=== PATIENT | male | born 1940 | race Caucasian/White ===

== ENCOUNTER 2017-01-10 13:14 | Inpatient (IN) | payer MEDICARE ==
[~2017-01-10] VITALS: Ht 180.3 cm; Wt 106.5 kg
[~2017-01-10 13:14] MED LIST: ASPIRIN LOW DOS81 M2 PO; CALCIUM 500+D PO; CASODEX50 MG PO; CRESTOR20 MG PO; FUROSEMIDE40 MG PO; HYDROCODONE/ACE1 TA7 PO; KLOR-CON20 MEQ PO; LOPRESSOR12.5 MG PO; MAGNESIUM-OX400 MG PO; METFORMIN500 MG PO; MULTI VIT PO; PRILOSEC20 MG PO; TERAZOSIN1 MG PO; TRAMADOL HCL50 MG PO; ZESTRIL/PRINIV2.5 MG PO
[2017-01-10 14:05] LABS: HEMATOCRIT 31.3 % (39.0-50.0); HEMOGLOBIN 9.7 g/dl (14.0-18.0); MEAN CELL VOLUME 92.1 fL CALC (80.0-100.0); MEAN CORPUSCULAR HGB 28.5 pG CALC (26.0-32.0); PLATELET COUNT 307 thou/uL (130-400); RED CELL DISTRI WIDTH 14.9 % (11.5-15.5)
[2017-01-10 14:19] LABS: CALCIUM 9.6 mg/dL (8.4-10.2); CREATININE 1.6 mg/dL (0.7-1.3); POTASSIUM 4.5 mmol/l (3.5-5.1)
[2017-01-10 14:21] LABS: URINE BILIRUBIN - DIPSTICK NEGATIVE (NEGATIVE); URINE BLOOD DIPSTICK MODERATE (NEGATIVE); URINE GLUCOSE - DIPSTICK 100 mg/dL (NEGATIVE); URINE KETONE NEGATIVE (NEGATIVE); URINE LEUK ESTERASE NEGATIVE (NEGATIVE); URINE NITRITE - DIPSTICK NEGATIVE (Negative); URINE PROTEIN - DIPSTICK >=300 mg/dL (NEG-TRACE); URINE SPECIFIC GRAVITY 1.025; URINE UROBILINOGEN - DIPSTICK 0.2 E.U./dL (0.2)
[2017-01-10 14:31] LABS: PROTHROMBIN TIME 10.7 SECONDS (9.0-12.5)
[2017-01-10 14:31] LABS: URINE COLOR RED
[2017-01-10] MEDS ORDERED: PREDNISONE1 MG PO (14:31)
[2017-01-10 14:32] LABS: URINE CLARITY CLOUDY; URINE RBC TNTC RBC/hpf (0-5); URINE SQUAMOUS EPITHELIAL CELL FEW EPI/hpf (0-FEW)
[2017-01-10 14:40] LABS: BAND 8 % (0-8); MANUAL DIFFERENTIAL YES
[2017-01-10 20:13] VITALS: BP 119/69
[2017-01-10 22:00] VITALS: BP 116/54
[2017-01-11 04:56] VITALS: BP 123/74
[2017-01-11 05:53] LABS: HEMATOCRIT 27.5 % (39.0-50.0); HEMOGLOBIN 8.5 g/dl (14.0-18.0); MEAN CELL VOLUME 92.3 fL CALC (80.0-100.0); MEAN CORPUSCULAR HGB 28.5 pG CALC (26.0-32.0); MEAN CORPUSCULAR HGB CONC 30.9 g/L CALC (32.0-36.0); RED BLOOD COUNT 2.98 mill/uL (4.70-6.10)
[2017-01-11 06:14] LABS: CALCIUM 8.8 mg/dL (8.4-10.2); CREATININE 1.5 mg/dL (0.7-1.3); POTASSIUM 4.4 mmol/l (3.5-5.1)
[2017-01-11 07:20] VITALS: BP 127/73
[2017-01-11 11:35] VITALS: BP 135/70
[2017-01-11 16:11] VITALS: BP 126/65
[2017-01-11 19:00] VITALS: BP 129/68
[2017-01-11 22:00] VITALS: BP 124/68
[2017-01-12] VITALS (8 sets, daily range): BP systolic 109–141; BP diastolic 49–80
[2017-01-12 05:49] LABS: CALCIUM 8.6 mg/dL (8.4-10.2); CREATININE 1.6 mg/dL (0.7-1.3); POTASSIUM 4.3 mmol/l (3.5-5.1)
[2017-01-12 05:51] LABS: HEMATOCRIT 29.1 % (39.0-50.0); HEMOGLOBIN 8.9 g/dl (14.0-18.0); MEAN CELL VOLUME 93.6 fL CALC (80.0-100.0); MEAN CORPUSCULAR HGB 28.6 pG CALC (26.0-32.0); MEAN CORPUSCULAR HGB CONC 30.6 g/L CALC (32.0-36.0); RED BLOOD COUNT 3.11 mill/uL (4.70-6.10); RED CELL DISTRI WIDTH 15.3 % (11.5-15.5)
[2017-01-12] MEDS ORDERED: KEFLEX500 M1 PO (11:52)
== END 2017-01-12 15:45 | disposition home health service (06) | DRG 723 ==
LOC: ED 13:14 → ED-I 16:28 → ED 16:46 → MS2 16:47
PROVIDERS: Family Medicine; ADMIT Internal Medicine; ATTEND Internal Medicine
PROC: 0T9B70Z Drainage of Bladder with Drainage Device, Via Natural or Artificial Opening (ICD-10-PCS; principal; 2017-01-10)
PROC: 0TCB8ZZ Extirpation of Matter from Bladder, Via Natural or Artificial Opening Endoscopic (ICD-10-PCS; 2017-01-12)
DX: C61 Malignant neoplasm of prostate (principal); I82.502 Chronic embolism and thrombosis of unspecified deep veins of left lower extremity; C79.11 Secondary malignant neoplasm of bladder; C79.51 Secondary malignant neoplasm of bone; R31.0 Gross hematuria; E11.22 Type 2 diabetes mellitus with diabetic chronic kidney disease; L03.116 Cellulitis of left lower limb; N13.30 Unspecified hydronephrosis; I25.10 Atherosclerotic heart disease of native coronary artery without angina pectoris; G89.3 Neoplasm related pain (acute) (chronic); I12.9 Hypertensive chronic kidney disease with stage 1 through stage 4 chronic kidney disease, or unspecified chronic kidney disease; N18.9 Chronic kidney disease, unspecified; R59.0 Localized enlarged lymph nodes; N32.89 Other specified disorders of bladder; I25.2 Old myocardial infarction; Z87.891 Personal history of nicotine dependence; Z79.899 Other long term (current) drug therapy; Z95.1 Presence of aortocoronary bypass graft
CPT/HCPCS: Q9967

== ENCOUNTER 2017-01-15 09:24 | Inpatient (IN) | payer MEDICARE ==
[~2017-01-15] VITALS: Ht 180.3 cm; Wt 110.2 kg
[~2017-01-15 09:24] MED LIST changes: +KEFLEX500 M1 PO; +PREDNISONE1 MG PO
--- NOTE | 2017-01-15 09:35 | NUR ---
PT TO ROOM FOR TREATMENT IN STABLE OCNDIITON
[2017-01-15 10:09] LABS: URINE BILIRUBIN - DIPSTICK SMALL (NEGATIVE); URINE BLOOD DIPSTICK LARGE (NEGATIVE); URINE CLARITY BLOODY; URINE COLOR RED; URINE GLUCOSE - DIPSTICK NEGATIVE (NEGATIVE); URINE KETONE TRACE mg/dL (NEGATIVE); URINE LEUK ESTERASE MODERATE (NEGATIVE); URINE NITRITE - DIPSTICK POSITIVE (Negative); URINE PROTEIN - DIPSTICK >=300 mg/dL (NEG-TRACE); URINE RBC TNTC RBC/hpf (0-5)
[2017-01-15 10:10] LABS: URINE BACTERIA MODERATE hpf; URINE EPITHELIAL CELLS FEW EPI/hpf (0-FEW)
[2017-01-15 10:38] LABS: HEMATOCRIT 27.5 % (39.0-50.0); HEMOGLOBIN 8.6 g/dl (14.0-18.0); IMMATURE GRANULOCYTES 2.1 % (0.0-1.0); MEAN CORPUSCULAR HGB 28.8 pG CALC (26.0-32.0); MEAN CORPUSCULAR HGB CONC 31.3 g/L CALC (32.0-36.0); NEUT# 7.59 thou/uL (1.82-7.42); RED BLOOD COUNT 2.99 mill/uL (4.70-6.10)
[2017-01-15 10:55] LABS: ALBUMIN 3.6 g/dL (3.2-5.0); BILIRUBIN, TOTAL 0.4 mg/dL (0.0-1.4); CALCIUM 9.5 mg/dL (8.4-10.2); CREATININE 1.9 mg/dL (0.7-1.3); POTASSIUM 4.2 mmol/l (3.5-5.1); TOTAL PROTEIN 6.3 g/dL (6.3-8.2)
--- NOTE | 2017-01-15 10:55 | NUR ---
PT SEEN BY EDP, AWARE OF PENDING U/S.
[2017-01-15 10:58] LABS: PROTHROMBIN TIME 11.1 SECONDS (9.0-12.5)
--- NOTE | 2017-01-15 14:16 | NUR ---
MEAL TRAY PROVIDED. PT AWARE OF PENDING ADMISSION.
[2017-01-15] MEDS ORDERED: LISINOPRIL2.5 MG PO (14:41)
--- NOTE | 2017-01-15 16:00 | NUR ---
Admission Note Report Given to: SBAR PRINTED TO FLOOR Transported by: Wheelchair X Stretcher Transported with: X Nurse Transporter X Patent IV O2 [employer] Specialist
--- NOTE | 2017-01-15 16:11 | NUR ---
PT TAKEN TO ROOM 277 WITHOUT INCIDENT, REPORT WAS TO FRANSICO JAMES.
[2017-01-15 16:17] VITALS: BP 138/80
--- NOTE | 2017-01-15 16:19 | NUR ---
REPORT RECEIVED FROM JERRY IN ED, PT ARRIVED ON UNIT VIA STRETCHER AND TRANSFERRED TO BED, ALERT AND ORIENTED X 3, ORIENTED TO ROOM AND CALL HALL. REPORTS PAIN IN LOWER BACK @ 7/10 AND OCCASIONAL SHARP STABBING PAIN TO LEFT LEG. HEARING AIDS X [address] IN [address], GLASSES IN PLACE. WILL CONTINUE TO MONITOR, SPOUSE AT BEDSIDE.
--- NOTE | 2017-01-15 16:52 | NUR ---
LEFT A MESSAGE BY LION ASENCIO FOR .
--- NOTE | 2017-01-15 18:45 | NUR ---
CORDELL LEWIS HAS BEEN APPLIED TO PT'S (R) LEG.
[2017-01-15 18:51] VITALS: BP 122/70
--- NOTE | 2017-01-15 19:15 | NUR ---
PT SITTING UP IN BED WATCHING TV. RESP ARE EVEN AND UNLABORED. NO DISTRESS NOTED. LUNGS ARE CLEAR. HR REG. PULSES PALPABLE THROUGHOUT. RLE HAS SLIGHT EDEMA. LLE W/ DVT IS RED AND EDEMA NOTED PT STATES HE HAS HAD DVT FOR 3+ MONTHS AND HAS A FILTER IN PLACE BECAUSE HE WAS NOT ABLE TO TOLERATE ANTICOAGULANTS DUE TO TURP. BS ACTIVE. PT RPORTS BM EARLIER TODAY. SCROTUM IS SWOLLEN. #20 LAC WITH NS @100CC/HR INFUSING NO REDNESS OR EDEMA NOTED AT IV SITE. CHEN DRAINING SIXTO COLORED URINE. WILL CONTINUE TO MONOITOR.
--- NOTE | 2017-01-15 21:42 | NUR ---
PT SCROTUM IS PAINFUL AND SWOLLEN. PROVIDED A TOWEL UNDER SCROTUM TO ALLOW SCROTUM TO BE ELEVATED. PILLOW CASE PROVIDED BETWEEN LEGS AND SCROTUM FOR COMFORT WELL.
--- NOTE | 2017-01-16 00:15 | NUR ---
IRRIGATED CHEN DUE TO LEAKING. PT TOLERATED WELL. NOTED YORYD IV SITE WAS LEAKING. WILL START A NEW IV SITE WELL. CHEN CONTINUE TO DRAIN SIXTO COLRED URINE. INFLATED BALLON WITH 10CC OF NS TO PREVENT FURTHER LEAKING. WILL CONTINUE TO MONITOR.
--- NOTE | 2017-01-16 01:10 | NUR ---
#22 RIGHT WRIST STARTED BY JB RAINES LPN. #20 LAC DC CATH TIP INTACT.
[2017-01-16 04:22] VITALS: BP 137/83
--- NOTE | 2017-01-16 04:51 | NUR ---
PT RESTING IN BED WITH EYES CLOSED. RESP ARE EVEN AND UNLABORED. NO DISTRESS NOTED. #22 RW. NS @100CC/HR INFUSING. NO REDNESS OR EDEMA NOTED AT SITE. CHEN DRAINING SIXTO URINE. WILL CONTINUE TO MONITOR
[2017-01-16 06:53] LABS: HEMATOCRIT 26.7 % (39.0-50.0); HEMOGLOBIN 8.2 g/dl (14.0-18.0); MEAN CELL VOLUME 92.1 fL CALC (80.0-100.0); MEAN CORPUSCULAR HGB 28.3 pG CALC (26.0-32.0); MEAN CORPUSCULAR HGB CONC 30.7 g/L CALC (32.0-36.0); RED BLOOD COUNT 2.9 mill/uL (4.70-6.10); RED CELL DISTRI WIDTH 15.3 % (11.5-15.5)
[2017-01-16 07:03] LABS: CALCIUM 8.9 mg/dL (8.4-10.2); CREATININE 1.7 mg/dL (0.7-1.3); POTASSIUM 4.1 mmol/l (3.5-5.1)
--- NOTE | 2017-01-16 08:08 | NUR ---
PT.UPRIGHT IN RECLINER EATING BREAKFAST AT THIS TIME, V/S ASSESSED, PT.DENIES ANY OTHER NEEDS AT THIS TIME, CALL LIGHT W/IN REACH. PT.INSTRUCTED TO CALL IF ANY NEEDS ARISE
[2017-01-16 08:11] VITALS: BP 140/77
--- NOTE | 2017-01-16 08:14 | NUR ---
PT SITTING UP IN THE RECLINER EATING BREAKFAST, CALL LIGHT IN REACH.
[2017-01-16] MEDS ORDERED: CIPROFLOXACN500 MG PO (14:18)
--- NOTE | 2017-01-16 14:32 | NUR ---
PT.MEDICATED W/IV LASIX AND POC DISCUSSED. AT BS.
[2017-01-16 15:36] VITALS: BP 143/76
--- NOTE | 2017-01-16 19:00 | NUR ---
CHEN CATHETER REMOVED, PT.TOLERATED WELL. 30CC REMOVED FROM CHEN BALLOON. PT.WANTS TO STAY TO MAKE SURE HE CAN URINATE W/OUT CHEN CATHETER. PT.IS IN RESTROOM AT THIS TIME ATTEMPTING TO URINATE.
[2017-01-16 19:35] VITALS: BP 123/76
--- NOTE | 2017-01-16 19:52 | NUR ---
PATIENT SITTING ON THE SIDE OF THE BED AT THIS TIME WITH AT BEDSIDE. PATIENT VOIDED 100CC OF BLOODY URINE AT THIS TIME. PATIENT CONT TO HAVE SEVERE SCOTAL AND PENIAL EDEMA. ENCOURAGED PATIENT TO USE ROLLED TOWEL FOR ELEVATION. PATIENT WITH HEP LOCK TO RIGHT WRIST INTACT-APPEARS HEALTHY AT THIS TIME. PATIENT INSTRUCTED TO CALL NEXT TIME HE HAS A SPEC TO BE MEASURED. VERBALIZES UNDERSTANDING OF THE STATED. CALL LIGHT IN REACH. WILL CONT TO MONITOR.
--- NOTE | 2017-01-16 20:47 | NUR ---
PATIENT VOIDED 125CC PINK TINGED URINE WITH A COUPLE OF SMALL CLOTS NOTED. IV SITE TO RIGHT WRIST D/C. CATH INTACT. DISCHARGE INSTRUCTS WERE ALREADY GIVEN TO THE PATIENT. JULIA VERBALIZES UNDERSTANDING OF DISCHARGE INSTRUCTIONS AND WILL F[facility]. PATIENT DISCHARGED VIA WHEELCHAIR WITH .
--- NOTE | 2017-01-16 20:50 | NUR ---
Discharge instructions given. Patient verbalizes understanding of same. Discharged in fair condition via Wheelchair to Home with spouse. All belongings sent with pt.
== END 2017-01-16 20:50 | disposition home or self-care (01) | DRG 729 ==
LOC: ED 09:24 → ED-I 13:38 → ED 13:50 → MS2 13:51
PROVIDERS: Emergency Medicine; ADMIT Internal Medicine; ATTEND Internal Medicine
DX: N50.89 Other specified disorders of the male genital organs (principal); C79.9 Secondary malignant neoplasm of unspecified site; E11.22 Type 2 diabetes mellitus with diabetic chronic kidney disease; I82.502 Chronic embolism and thrombosis of unspecified deep veins of left lower extremity; N39.0 Urinary tract infection, site not specified; N43.3 Hydrocele, unspecified; C61 Malignant neoplasm of prostate; I25.10 Atherosclerotic heart disease of native coronary artery without angina pectoris; R31.0 Gross hematuria; K21.9 Gastro-esophageal reflux disease without esophagitis; E78.5 Hyperlipidemia, unspecified; I12.9 Hypertensive chronic kidney disease with stage 1 through stage 4 chronic kidney disease, or unspecified chronic kidney disease; N18.9 Chronic kidney disease, unspecified; Z95.1 Presence of aortocoronary bypass graft; Z79.899 Other long term (current) drug therapy; Z87.891 Personal history of nicotine dependence

== ENCOUNTER 2017-08-05 13:56 | Inpatient (IN) | payer OTHER, MEDICARE ==
[~2017-08-05] VITALS: Ht 180.3 cm; Wt 113.7 kg
[~2017-08-05 13:56] MED LIST changes: +CIPROFLOXACN500 MG PO; +LISINOPRIL2.5 MG PO
--- NOTE | 2017-08-05 14:19 | NUR ---
PATIENT TO ROOM VIA WHEELCHAIR AND PHYSICIAN AT BEDSIDE FOR EVAL
[2017-08-05 14:50] LABS: HEMATOCRIT 30.2 % (39.0-50.0); HEMOGLOBIN 9.3 g/dl (14.0-18.0); IMMATURE GRANULOCYTES 0.8 % (0.0-1.0); MEAN CELL VOLUME 89.9 fL CALC (80.0-100.0); MEAN CORPUSCULAR HGB 27.7 pG CALC (26.0-32.0); MEAN CORPUSCULAR HGB CONC 30.8 g/L CALC (32.0-36.0); NEUT# 6.02 thou/uL (1.82-7.42); RED BLOOD COUNT 3.36 mill/uL (4.70-6.10); RED CELL DISTRI WIDTH 18.2 % (11.5-15.5)
--- NOTE | 2017-08-05 15:02 | NUR ---
pt with hob elevated, skin pale, warm, and dry. shortness of breath noted at rest, worse with exertion. ls diminished, abd firm, distended, bs active. pitting edema noted to bilateral lower extremities. monitor shows sinus tach, 02 95% room air.
[2017-08-05 15:05] LABS: CREATININE 1.7 mg/dL (0.7-1.3); POTASSIUM 3.8 mmol/l (3.5-5.1)
--- NOTE | 2017-08-05 16:00 | NUR ---
PT RESTING WITH EYES CLOSED, AWAKENS EASILY. SPOUSE AT BEDSIDE.
[2017-08-05 16:59] LABS: INFLUENZA A NONE DETECTED (NONE DETECT); INFLUENZA B NONE DETECTED (NONE DETECT)
--- NOTE | 2017-08-05 17:00 | NUR ---
PT OOB TO BATHROOM VIA WC. PT HAD ONE LOOSE, BROWN BM. PT BACK TO BED. INCREASED SHORTNESS OF BREATH NOTED ON EXERTION. PT POSITIONED IN BED FOR COMFORT 02 AT 2L VIA NC CONTINUES TO BE ON PT.
--- NOTE | 2017-08-05 18:00 | NUR ---
FROM ER VIA STRETCHER ACCOMPANIED BY AND CHEO BATEMAN. AMBULATED TO BED WITH UNSTEADY GAIT. EXERTIONAL SHORTNESS OF BREATH NOTED ON O2 VIA NC, TELE MONITOR IN PLACE. REPORTS DIARRHEA SINCE LAST CHEMO TREATMENT, WHICH IS Q3 WEEKS, NEXT CHEMO TREATMENT DUE 08/18/17. BILAT LOWER EXTREMITIES EDEMATOUS AND FIRM. ORIENTED TO ROOM AND CALL SYSTEM. SAFETY PRECAUTIONS REINFORCED. BED IN LOWEST POSITION WITH WHEELS LOCKED. CALL LIGHT WITHIN REACH. ENCOURAGED PT AND TO CALL FOR ANY NEEDS.
--- NOTE | 2017-08-05 18:00 | NUR ---
REPORT FLORES REGALADO RN.
[2017-08-05] MEDS ORDERED: LASIX 40 MG TAB40 MG PO (18:20)
[2017-08-05] MEDS ORDERED: ELIGARD45 MG SC (18:21)
[2017-08-05] MEDS ORDERED: METOPROL TAR25 M1 PO (18:23)
[2017-08-05] MEDS ORDERED: KLOR-CON SPRIN10 MEQ PO (18:26)
[2017-08-05] MEDS ORDERED: RAYOS5 MG PO (18:28)
[2017-08-05] MEDS ORDERED: ROSUVASTATIN CA40 MG PO (18:29)
[2017-08-05] MEDS ORDERED: FISH OIL1200 M1 PO (18:30)
[2017-08-05] MEDS ORDERED: CALCIUM/VITAMIN D (18:30)
[2017-08-05] MEDS ORDERED: MULTIVITAMI9 PO (18:31)
[2017-08-05 18:54] VITALS: BP 118/59
--- NOTE | 2017-08-05 19:25 | NUR ---
REPORT RECEIVED FROM DAY NURSE, FRANSICO TANNER. PT.IS LAYING BACK DOWN FROM SITTING ON SIDE OF THE BED. IS ASSISTING HIM TO POSITION, WE ASSISTED WELL. POC DISCUSSED W/PT AND USE OF BSC WAS DISCUSSED W/PT DUE TO SOB. URINAL IS AT BEDSIDE W/IN PT.REACH. VANCO IS RUNNING AT THIS TIME. IV SITE APPEARS HEALTHY. PT.DENIES ANY OTHER NEEDS AT THIS TIME. PT.LEFT IN BED W/ AT BEDSIDE. BED LEFT IN HIGH FOWLERS POSITION FOR COMFORT OF BREATHING. PT.ENCOURAGED TO CALL IF ANY NEEDS ARISE, CALL LIGHT IS AT SIDE.
[2017-08-05 19:50] VITALS: BP 124/66
--- NOTE | 2017-08-05 20:18 | NUR ---
ED CALLED TO REPORT PT.HR IN 140'S SUSTAINED. PT.IS SITTING ON SIDE OF THE BED C/O SOB. O2 IS ON NC @2L, PHYSICIAN NOTIFIED, ORDERS ARE BEING PLACED.
--- NOTE | 2017-08-05 21:36 | NUR ---
PT.MEDICATED ORDERS PROVIDE, VANCO IS STILL RUNNING AT THIS TIME. WILL CONTINUE ADMINISTERING OTHER ANTIBIOTICS ORDERED WHEN COMPLETE. PT.IS IN RECLINER FOR COMFORT OF BREATHING. O2 IS ON NC @2L, FEET ARE ELEVATED. PT.PROVIDED FRESH WATER TO DRINK, DENIES ANY OTHER NEEDS AT THIS TIME. WILL CONTINUE TO MONITOR AND FOLLOW CLOSELY. CALL LIGHT LEFT ON BST AT PT.SIDE AND HE HAS BEEN REMINDED TO CALL IF ANY NEEDS ARISE. PT.IS LOCX4, SLIGHTLY HARD OF HEARING, BUT LOC.
--- NOTE | 2017-08-05 22:26 | NUR ---
PT.MEDICATED W/IV ANTIBIOTICS ORDERS PROVIDE. TEMP REASSESSED @98.3, PT.HAS REMOVED HIS GOWN AND REPORTS FEELING "HOT," NO S/O CHILLS, A/C IN ROOM IS LOWERED. BREATHING IS NO LONGER LABORED, PT.IS APPEARS TO BE RESTING COMFORTABLY IN RECLINER. REPORTS SLEEPING IN RECLINER AT HOME. NO SOB AT THIS TIME OR S/O DISTRESS. CALL LIGHT IS ON BST W/IN REACH.
[2017-08-06] VITALS (10 sets, daily range): BP systolic 82–106; BP diastolic 49–89
--- NOTE | 2017-08-06 00:15 | NUR ---
PT.IS IN RECLINER ASLEEP UPON ENTERING ROOM. IV FLUIDS ARE RUNNING @100, SITE APPEARS HEALTHY. V/S ASSESSED AND LAB IS IN TO SEE PT. NO S/S OF DISTRESS NOTED AT THIS TIME. CALL LIGHT W/IN REACH. PT.DENIES ANY OTHER NEEDS. PT.LEFT IN RECLINER TO SEE PER REQUEST.
--- NOTE | 2017-08-06 02:25 | NUR ---
ED CALLED TO REPORT PT TELE NOT READING. ALL LEADS LOOK IN PLACE. CHANGED LEAD PADS ALL NEW, ED REPORTS NOW ALL LEADS ARE READING, PT.HR@83. PT.REPORTS "FEEL MUCH BETTER THAN I DID EARLIER." BREATHING IS NOT LABORED, BREATH SOUNDS ARE CLEAR, DENIES SOB AT THIS TIME. PT.IS LEFT IN RECLINER W/FEET ELEVATED. OFFERED ASSISTANCE IN MOVING TO THE BED, BUT PT.DENIED WANTING TO STAY IN THE RECLINER. O2 NC ON @2L. CALL LIGHT ON BST
--- NOTE | 2017-08-06 03:45 | NUR ---
PT.UP TO BSC W/LOOSE STOOLS, 1 SMALL LOOSE DARK GREEN STOOL AND 150CC DARK YELLOW URINE IN URINAL. PT.CLEANED AND PROVIDED MALI-CARE AND REPOSITIONED BACK IN RECLINER. PT DID NOT WANT FEET ELEVATED AT THIS TIME. V/S ASSESSED, PT ASSISTED DRINKING PO FLUIDS. IV FLUIDS RUNNING NS@100 IN THE RAC, IV SITE APPEARS HEALTHY/SECURED. LW IV SITE APPEARS HEALTHY AND IS PATENT. LUNG SOUNDS ARE CLEAR/DIM, BREATHING IS NON-LABORED. PT.REPORTS NOT FEELING SOB HE DID WHEN HE CAME IN. O2 SAT 99%ON 2LNC. BP IS RUNNING LOW 97/55, HR IMPROVED @90. PT.SOCKS AND GOWN REPLACED AT THIS TIME AND POT MAKER PLACEMENT CHECKED. PT.DENIES ANY OTHER NEEDS OF ASSISTANCE AT THIS TIME. CALL LIGHT IS W/IN REACH ON BST.
--- NOTE | 2017-08-06 06:07 | NUR ---
PT.AMBULATED TO RESTROOM, MODERATE SIZE LOOSE DARK GREEN BM. PT.AMBULATED BACK TO RECLINER W/ASSISTANCE. ASSISTED PT.IN REPOSITIONING, HE WANTED HIS FEET DOWN FOR NOW, IV FLUIDS ARE RUNNING NS@100/SITE APPEARS HEALTHY. PT.HAD MILD SOB UPON AMBULATING. PO FLUIDS OFFERED AND PT.ENCOURAGED TO CALL IF ANY FURTHER NEEDS ARISE.
--- NOTE | 2017-08-06 07:00 | NUR ---
BEDSIDE REPORT RECEIVED BY BARNEY. PT IS RESTING IN BED WITH NO S/S OF DISTRESS NOTED. PT DENIES NEEDS AT THIS TIME. SAFETY PRECAUTIONS REINFORCED AND CALL LIGHT IN REACH.
--- NOTE | 2017-08-06 07:05 | NUR ---
PT IS SITTING IN RECLNER WITH NO S/S OF DISTRESS NOTED. PT DENIES NEEDS AT THIS TIME. CALL LIGHT IN REACH.
--- NOTE | 2017-08-06 08:00 | NUR ---
PT IS SITTING IN RECLINER. ASSESSMENT DONE AND TELE IN PLACE. LUNG SOUND CLEAR/DIMINISHED. O2 AT 2L/MIN VIA NC. NS INFUSING WELL. PT DENIES PAIN AT THIS TIME. SAFETY PRECAUTIONS REINFORCED AND CALL LIGHT IN REACH.
--- NOTE | 2017-08-06 08:40 | NUR ---
DR. FULLER IN ROOM TO ASSESS PT AT THIS TIME.
[2017-08-06 12:24] LABS: HEMATOCRIT 30.9 % (39.0-50.0); HEMOGLOBIN 9.4 g/dl (14.0-18.0); MEAN CELL VOLUME 91.2 fL CALC (80.0-100.0); MEAN CORPUSCULAR HGB 27.7 pG CALC (26.0-32.0); MEAN CORPUSCULAR HGB CONC 30.4 g/L CALC (32.0-36.0); RED BLOOD COUNT 3.39 mill/uL (4.70-6.10); RED CELL DISTRI WIDTH 18.3 % (11.5-15.5)
--- NOTE | 2017-08-06 12:24 | NUR ---
MEDICATED PT WITH TYLENOL FOR TEMP. 100.7. PT DENIES ANY OTHER NEEDS AT THIS TIME. CALL LIGHT IN REACH.
[2017-08-06 12:51] LABS: ANION GAP 19 (6-22 (CALC)); BUN 27 mg/dL (8-23); BUN/CREATININE RATIO 16 (12-20 (CALC)); CARBON DIOXIDE 22 mmol/l (22-30); CHLORIDE 96 mmol/l (95-108); CREATININE 1.7 mg/dL (0.7-1.3); GFR 39 ML/MIN (>=60 (CALC)); GFR FOR AFR.AMER. 48 ML/MIN (>=60 (CALC)); POTASSIUM 4.1 mmol/l (3.5-5.1); SODIUM 132 mmol/l (137-146)
--- NOTE | 2017-08-06 16:00 | NUR ---
PT IS SITTING IN RECLINER WITH NO S/S OF DISTRESS NOTED. PT DENIES NEEDS AT THIS TIME. IN ROOM. CALL LIGHT IN REACH.
--- NOTE | 2017-08-06 19:45 | NUR ---
PT OOB SITTING IN BEDSIDE CHAIR WITH AT BEDSIDE. RESP EVEN AND UNLABORED WITH O2 IN PLACE. TELE IN PLACE. LUNGS CLEAR/ DIMINISHED IN BASES. ABD SOFT, ACTIVE BOWEL SOUNDS. +3 EDEMA LEGS, PT ENCOURAGED TO ELEVATE. PT STATES " I AM MORE COMFORTABLE WITH MY LEGS DOWN". PEDAL PULSES PALPATED BILAT. IV RAC PATENT; NO REDNESS OR EDEMA NOTED. IV LW PATENT; FLUSHED WITHOUT DIFFICULTY. SAFETY PRECAUTIONS REINFORCED; FREQUENT ROUNDS MADE. CALL LIGHT WITHIN REACH.
--- NOTE | 2017-08-07 00:20 | NUR ---
PT SITTING IN BEDSIDE CHAIR. RESP EVEN AND UNLABORED WITH O2 IN PLACE. PT STATES " I AM MORE COMFORTABLE SLEEPING IN BEDSIDE CHAIR. I USUALLY SLEEP IN A CHAIR AT HOME." PT HAS LEGS ELEVATED. PT DENIES ANY PAIN OR DISCOMFORT. IV RAC PATENT; NO REDNESS OR EDEMA NOTED. TELE IN PLACE. CALL LIGHT WITHIN REACH.
--- NOTE | 2017-08-07 04:00 | NUR ---
PT OOB IN BEDSIDE CHAIR, PT DENIES ANY PAIN OR DISCOMFORT. RESP EVEN AND UNLABORED WITH O2 IN PLACE. TELE IN PLACE. IV PATENT; NO REDNESS OR EDEMA NOTED. LEGS ELEVATED. CALL LIGHT WITHIN REACH.
[2017-08-07 05:30] VITALS: BP 105/62
--- NOTE | 2017-08-07 07:00 | NUR ---
BEDSIDE REPORT RECEIVED BY LILLIAN. PT IS SITTING IN RECLINER SLEEPING WITH NO S/S OF DITRESS NOTED. CALL LIGHT IN REACH.
[2017-08-07 07:46] VITALS: BP 113/63
--- NOTE | 2017-08-07 08:00 | NUR ---
ASSESSMENT DONE. LUNG SOUND CLEAR/DIMINISHED. O2 AT 2L/MIN VIA NC. PT DENIES PAIN AT THIS TIME. ELEVATED PT LEGS IN RECLINER. NS AT 10ML/HR INFUSING WELL. SAFETY PRECAUTIONS REINFORCED AND CALL LIGHT IN REACH.
--- NOTE | 2017-08-07 09:41 | NUR ---
CULTURE RESULTS CALLED TO ON 08/07/17 @7389 1 OF 2 SETS GRAM (+) COCCI. FINAL C+S RESULTS PENDONG
--- NOTE | 2017-08-07 09:50 | NUR ---
DR. FULLER IN ROOM TO ASSESS PT AT THIS TIME.
--- NOTE | 2017-08-07 12:06 | NUR ---
PT IS STTING IN RECLINER WITH NO S/S OF DISTRESS NOTED. PT DENIES NEEDS AT THIS TIME. IN ROOM. CALL LIGHT IN REACH.
[2017-08-07 12:35] VITALS: BP 115/69
--- NOTE | 2017-08-07 16:00 | NUR ---
PT IS RESTING IN RECLINER WITH NO S/S OF DISTRESS NOTED. PT DENIES NEEDS AT THIS TIME. IN ROOM. CALL LIGHT IN REACH.
[2017-08-07 16:21] VITALS: BP 104/56
--- NOTE | 2017-08-07 18:08 | NUR ---
NOTIFED DR. FULLER RE: PT WHEEZES AND SOB. ORDERS RECEIVED.
--- NOTE | 2017-08-07 19:31 | NUR ---
PT SITTING IN BEDSIDE CHAIR WITH LEGS ELEVATED. AT BEDSIDE. LUNGS; WHEEZES/DIMINISHED BILAT. RESP EVEN AND UNLABORED WITH O2 IN PLACE. TELE IN PALCE. ABD SOFT; ACTIVE BOWEL SOUNDS NOTED. +3 EDEMA LEGS BILAT; PEDAL PULSES PALPATED BILAT. IV LW PATENT; FLUSHED WITHOUT DIFFICULTY. IV RAC PATENT; NO REDNESS OR EDEMA NOTED. PT DENIES ANY PAIN. SAFETY PRECAUTIONS REINFORCED. FREQUENT ROUNDS MADE. CALL LIGHT WITHIN REACH.
[2017-08-07 20:25] VITALS: BP 102/64
[2017-08-08] VITALS (7 sets, daily range): BP systolic 100–132; BP diastolic 54–74
--- NOTE | 2017-08-08 00:15 | NUR ---
PT SITTING IN BEDSIDE CHAIR, LEGS ELEVATED. PT DENIES PAIN OR DISCOMFORT. IV PATENT; NO REDNESS OR EDEMA NOTED. TELE IN PLACE. OFFERED TO HELP PT TO BED, PT STATES "I AM MORE COMFORTABLE SLEEPING IN CHAIR." CALL LIGHT WITHIN REACH.
--- NOTE | 2017-08-08 04:30 | NUR ---
ASSESSMENT UNCHANGED; RESP EVEN AND UNLABORED WITH O2 IN PLACE. IV PATENT; NO REDNESS OR EDEMA NOTED. TELE IN PLACE. CALL LIGHT WITHIN REACH.
[2017-08-08 05:14] LABS: CREATININE 1.7 mg/dL (0.7-1.3); POTASSIUM 3.4 mmol/l (3.5-5.1)
[2017-08-08 05:28] LABS: HEMOGLOBIN 9.2 g/dl (14.0-18.0); MEAN CELL VOLUME 91.5 fL CALC (80.0-100.0); MEAN CORPUSCULAR HGB CONC 30.7 g/L CALC (32.0-36.0); RED BLOOD COUNT 3.28 mill/uL (4.70-6.10); RED CELL DISTRI WIDTH 18.2 % (11.5-15.5)
--- NOTE | 2017-08-08 07:00 | NUR ---
BEDSIDE REPORT RECEIVED BY LILLIAN. PT IS SITTING IN RECLINER SLEEPING WITH NO S/S OF DISTRESS NOTED. CALL LIGHT IN REACH .
--- NOTE | 2017-08-08 08:00 | NUR ---
ASSESSMENT DONE. LUNG SOUND WHEEZE/DIMINISHED. O2 AT 2L/MIN VIA NC. NS AT 10ML/HR INFUSING WELL. TELE IN PLACE. PT DENIES PAIN AT THIS TIME. SAFETY PRECAUTIONS REINFORCED AND CALL LIGHT IN REACH.
--- NOTE | 2017-08-08 10:08 | NUR ---
DR. FULLER IN ROOM TO ASSESS PT AND POC DISCUSSED WITH PT.
--- NOTE | 2017-08-08 12:00 | NUR ---
PT IS SITTING IN RECLINER EATING HIS LUNCH WITH NO S/S OF DISTRESS NOTED. PT DENIES NEEDS AT THIS TIME. CALL LIGHT IN REACH AND IN ROOM.
[2017-08-08 12:10] LABS: C. DIFFICILE TOXIN A&B NEGATIVE (NEGATIVE)
--- NOTE | 2017-08-08 16:00 | NUR ---
PT IS SITTING IN RECLINER WITH LEGS ELEVATED. NO S/S OF DISTRESS NOTED. PT DENIES NEEDS AT THIS TIME. IN ROOM AND CALL LIGHT IN REACH.
--- NOTE | 2017-08-08 19:33 | NUR ---
PT SITTING IN BEDSIDE CHAIR WITH AT SIDE. PT DENIES ANY PAIN OR DISCOMFORT. RESP EVEN AND UNLABORED WITH O2 IN PLACE. LUNGS CLEAR/DIMINISHED BILAT. TELE IN PLACE. LEGS ELEVATED, +2 EDEMA BILAT. PEDAL PULSES PALPATED BILAT. IV RAC PATENT; NO REDNESS OR EDEMA NOTED. IV LW PATENT; FLUSHED WITHOUT DIFFICULTY. SAFETY PRECAUTIONS REINFORCED; FREQUENT ROUNDS MADE. CALL LIGHT WITHIN REACH.
--- NOTE | 2017-08-09 00:20 | NUR ---
PT DENIES PAIN OR DISCOMFORT. RESP EVEN AND UNLABORED WITH O2 IN PLACE. IV PATENT; NO REDNESS OR EDEMA NOTED. TELE IN PLACE. CALL LIGHT WITHIN REACH.
--- NOTE | 2017-08-09 04:10 | NUR ---
ASSESSMENT UNCHANGED; PT SLEEPING IN BEDSIDE CHAIR WITH LEGS ELEVATED. RESP EVEN AND UNLABORED WITH O2 IN PLACE. TELE IN PLACE. IV PATENT; NO REDNESS OR EDEMA NOTED. CALL LIGHT WITHIN REACH.
[2017-08-09 04:15] VITALS: BP 117/69
[2017-08-09 05:13] LABS: HEMATOCRIT 28.3 % (39.0-50.0); MEAN CELL VOLUME 89.6 fL CALC (80.0-100.0); MEAN CORPUSCULAR HGB 28.5 pG CALC (26.0-32.0); MEAN CORPUSCULAR HGB CONC 31.8 g/L CALC (32.0-36.0); RED BLOOD COUNT 3.16 mill/uL (4.70-6.10); RED CELL DISTRI WIDTH 17.9 % (11.5-15.5)
[2017-08-09 05:27] LABS: CREATININE 1.7 mg/dL (0.7-1.3); POTASSIUM 3.9 mmol/l (3.5-5.1)
--- NOTE | 2017-08-09 07:00 | NUR ---
RECEIVED BEDSIDE REPORT FROM FLOR VALERA. SITTING IN BEDSIDE CHAIR WATCHING TV. RESPS EVEN AND UNLABORED ON O2 VIA NC, TELE MONITOR IN PLACE. #20 RAC INFUSING WITHOUT DIFFICULTY, SITE APPEARS HEALTHY. DENIES PAIN OR DISCOMFORT. PLAN OF CARE DISCUSSED. SAFETY PRECAUTIONS REINFORCED. BED IN LOWEST POSITION WITH WHEELS LOCKED. CALL LIGHT WITHIN REACH. ENCOURAGED PT TO CALL FOR ANY NEEDS.
[2017-08-09 08:55] VITALS: BP 113/55
[2017-08-09 11:31] VITALS: BP 108/63
--- NOTE | 2017-08-09 11:45 | NUR ---
SITTING IN BEDSIDE CHAIR, AT BEDSIDE. RESPS EVEN AND UNLABORED ON O2 VIA NC, TELE MONITOR IN PLACE. #20 RAC INFUSING WITHOUT DIFFICULTY, SITE APPEARS HEALTHY. DR FULLER AT BEDSIDE, NEW ORDERS RECEIVED.
[2017-08-09 15:17] VITALS: BP 112/66
--- NOTE | 2017-08-09 16:00 | NUR ---
SITTING IN BEDSIDE CHAIR. RESPS EVEN AND UNLABORED ON O2 VIA NC, TELE MONITOR IN PLACE. #20 RAC INFUSING WITHOUT DIFFICULTY, SITE APPEARS HEALTHY. VOICES NO NEEDS AT THIS TIME. CALL LIGHT WITHIN REACH. WILL CONTINUE TO MONITOR.
[2017-08-09 19:00] VITALS: BP 125/64
--- NOTE | 2017-08-09 20:40 | NUR ---
PT SITTING IN BEDSIDE CHAIR, AT BEDSIDE. PT DENIES ANY PAIN OR DISCOMFORT. RESP EVEN AND UNLABORED WITH O2 IN PLACE. TELE IN PALCE. ABD SOFT; ACTIVE BOWEL SOUNDS NOTED. +2 EDEMA ANKLES BILAT. PT ENCOURAGED TO ELEVATE. IV RAC PATENT; FLUSHED WITHOUT DIFFICULTY. IV LW PATENT; FLUSHED WITHOUT DIFFICULTY. SAFETY PRECAUTIONS REINFORCED. FREQUENT ROUNDS MADE. CALL LIGHT WITHIN REACH.
[2017-08-10] VITALS: BP 118/58
--- NOTE | 2017-08-10 00:15 | NUR ---
PT APPEARS TO BE SLEEPING IN BEDSIDE CHAIR WITH LEGS ELEVATED. RESP EVEN AND UNLABORED WITH O2 IN PALCE. TELE IN PLACE. CALL LIGHT WITHIN REACH.
--- NOTE | 2017-08-10 04:10 | NUR ---
ASSESSMENT UNCHANGED; PT DENIES PAIN. RESP EVEN AND UNLABORED WITH O2. TELE IN PLACE. CALL LIGHT WITHIN REACH.
[2017-08-10 04:15] VITALS: BP 126/74
[2017-08-10 05:30] LABS: CREATININE 1.6 mg/dL (0.7-1.3); MAGNESIUM 1.9 mg/dL (1.6-2.3)
[2017-08-10 06:04] LABS: HEMATOCRIT 29.4 % (39.0-50.0); HEMOGLOBIN 8.9 g/dl (14.0-18.0); MANUAL DIFFERENTIAL YES; MEAN CELL VOLUME 90.2 fL CALC (80.0-100.0); MEAN CORPUSCULAR HGB 27.3 pG CALC (26.0-32.0); MEAN CORPUSCULAR HGB CONC 30.3 g/L CALC (32.0-36.0); PLATELET COUNT 299 thou/uL (130-400); RED BLOOD COUNT 3.26 mill/uL (4.70-6.10); RED CELL DISTRI WIDTH 17.8 % (11.5-15.5)
[2017-08-10 06:05] LABS: PLATELET ESTIMATE NORMAL
--- NOTE | 2017-08-10 07:00 | NUR ---
RECEIVED BEDSIDE REPORT FROM FLOR VALERA. SITTING IN BEDSIDE CHAIR. RESPS EVEN AND UNLABORED ON O2 VIA NC, TELE MONITOR IN PLACE. DENIES PAIN OR DISCOMFORT. PLAN OF CARE DISCUSSED. SAFETY PRECAUTIONS REINFORCED. BED IN LOWEST POSITION WITH WHEELS LOCKED. CALL LIGHT WITHIN REACH. WILL CONTINUE TO MONITOR.
[2017-08-10 08:10] VITALS: BP 118/65
[2017-08-10 11:05] VITALS: BP 104/64
--- NOTE | 2017-08-10 12:00 | NUR ---
TO ULTRASOUND IN STABLE CONDITION VIA WHEELCHAIR ACCOMPANIED BY DIANE BIRD.
--- NOTE | 2017-08-10 13:15 | NUR ---
FROM ULTRASOUND VIA WHEELCHAIR ACCOMPANIED BY VOLUNTEER. AMBULATED TO BEDSIDE CHAIR WITH MIN ASSIST. SOB NOTED WITH EXERTION, TELE MONITOR IN PLACE. CALL LIGHT WITHIN REACH. WILL CONTINUE TO MONITOR.
[2017-08-10 15:38] VITALS: BP 117/69
--- NOTE | 2017-08-10 16:00 | NUR ---
SITTING IN BEDSIDE CHAIR, AT BEDSIDE. RESPS EVEN AND UNLABORED ON O2 VIA NC, TELE MONITOR IN PLACE. DENIES PAIN OR DISCOMFORT. CALL LIGHT WITHIN REACH. WILL CONTINUE TO MONITOR.
--- NOTE | 2017-08-10 19:45 | NUR ---
PT SITTING UP IN RECLINER WATCHING TV. PT IS ALERT AND ORIENTED X3. PERRLA. RESP ARE EVEN AND UNLABORED. NO DISTRESS NOTED. LUNGS ARE CLEAR AND DIMINISHED THROUGHOUT. HR REGULAR. TELE IN PLACE. PULSES PALPABLE THROUGHOUT. 2+ EDEMA TO BLE. BS ACTIVE. PT VOIDING VIA URINAL. BM REPORTED TODAY. 320 RAC AND #22 LEFT WRIST. BOTH SALINE LOCKED. NO REDNESS OR EDMEA NOTED AT EITHER SITE. CALL LIGHT IN REACH. WILL CONTINUE TO MONTIOR
[2017-08-10 19:50] VITALS: BP 139/77
--- NOTE | 2017-08-10 23:58 | NUR ---
PT RESTING IN RECLINER WATCHING TV. RESP ARE EVEN AND UNLABORED. NO DISTRESS NOTED. CALL LIGHT IN REACH. WILL CONTINUE TO MONTIOR
[2017-08-11 00:30] VITALS: BP 119/65
--- NOTE | 2017-08-11 04:12 | NUR ---
PT UP IN RECLINER WITH EYES CLOSED. RESP ARE EVEN AND UNLABORED. NO DISTRESS NOTED. CALL LIGHT IN REACH. WILL CONTINUE TO MONTIOR
[2017-08-11 05:31] LABS: HEMATOCRIT 29.8 % (39.0-50.0); HEMOGLOBIN 9.2 g/dl (14.0-18.0); MEAN CELL VOLUME 90.9 fL CALC (80.0-100.0); MEAN CORPUSCULAR HGB CONC 30.9 g/L CALC (32.0-36.0); RED BLOOD COUNT 3.28 mill/uL (4.70-6.10); RED CELL DISTRI WIDTH 18.2 % (11.5-15.5)
[2017-08-11 05:39] LABS: CREATININE 1.6 mg/dL (0.7-1.3); MAGNESIUM 1.9 mg/dL (1.6-2.3); POTASSIUM 4.4 mmol/l (3.5-5.1)
[2017-08-11 05:42] VITALS: BP 113/64
[2017-08-11 06:07] LABS: IMMATURE GRANULOCYTES 23.1 % (0.0-1.0); MANUAL DIFFERENTIAL YES
[2017-08-11 06:08] LABS: BAND 5 % (0-8)
[2017-08-11 06:09] LABS: PLATELET ESTIMATE NORMAL
[2017-08-11 06:10] LABS: PLATELET COUNT 244 thou/uL (130-400)
--- NOTE | 2017-08-11 06:45 | NUR ---
REPORT RECEIVED FROM FRANSICO MARRERO. PT SITTING IN CHAIR AT BEDSIDE. SLEEPING. CALL LIGHT WITHIN REACH.
[2017-08-11 08:55] VITALS: BP 111/66
[2017-08-11 12:05] VITALS: BP 116/64
--- NOTE | 2017-08-11 12:05 | NUR ---
O2 REMOVED FOR O2 TRIAL. PT AMBULATED IN HALLWAYS. RT NOTIFIED, IN ROOM TO DRAW ABG.
--- NOTE | 2017-08-11 12:16 | NUR ---
PT WAS SEEN SITTING IN THE RECLINER WITH O2 VIA NASAL CANNULA SET AT 3L. SPO2 WAS 98%, DESAT TO 92% WHILE ATTEMPTING TO STAND UP. SIT TO STAND REQUIRED 2 ATTEMPTS. AMB. BEDSIDE WITH RW AND CGA ~10 FEET X 2 W/O O2. SOB WAS NOTICED ALTHROUGHOUT THE TASK WITH O2 DESATURATION TO 83% ON ROOM AIR. PT WAS ASSISTED BACK TO RECLINER AND INSTRUCTED ON BREATHING EX. O2 VIA NASAL CANNULA WAS RE-ATTACHED, SPO2 THEN RETURNED TO 98%. LEFT PT WITH CALL HALL BESIDE HIM.
[2017-08-11 15:23] VITALS: BP 119/64
--- NOTE | 2017-08-11 17:58 | NUR ---
PT SITTING IN CHAIR AT BEDSIDE. DENIES COMPLAINTS. EATING DINNER.
--- NOTE | 2017-08-11 19:00 | NUR ---
RECEIVED CHANGE OF SHIFT REPORT FROM FRANSICO RANGEL. PATIENT AND ORIENTED X 3 AND SITTING UP IN CHAIR. NO APPARENT ACUTE DISTRESS NOTED AT THIS TIME.
[2017-08-11 19:20] VITALS: BP 104/58
[2017-08-12] VITALS (15 sets, daily range): BP systolic 99–135; BP diastolic 50–68
--- NOTE | 2017-08-12 | NUR ---
PATIENT RESTING IN RECLINER CHAIR AND APPEARS TO BE ASLEEP. RESP EVEN AND NON-LABORED. NO APPARENT ACUTE DISTRESS NOTED. WILL CONTINUE TO MONITOR.
--- NOTE | 2017-08-12 04:00 | NUR ---
PATIENT RESTING IN RECLINER. NO APPARENT ACUTE CHANGES NOTED IN PT'S CONDITION.
[2017-08-12 05:08] LABS: CREATININE 1.6 mg/dL (0.7-1.3)
[2017-08-12 05:11] LABS: HEMATOCRIT 30.2 % (39.0-50.0); HEMOGLOBIN 9.2 g/dl (14.0-18.0); MEAN CELL VOLUME 90.1 fL CALC (80.0-100.0); MEAN CORPUSCULAR HGB 27.5 pG CALC (26.0-32.0); MEAN CORPUSCULAR HGB CONC 30.5 g/L CALC (32.0-36.0); RED BLOOD COUNT 3.35 mill/uL (4.70-6.10); RED CELL DISTRI WIDTH 18.2 % (11.5-15.5)
--- NOTE | 2017-08-12 07:03 | NUR ---
REPORT RECEIVED FROM FRANSICO PLASENCIA. PT SITTING IN CHAIR AT BEDSIDE. SLEEPING. CALL LIGHT WITHIN REACH.
--- NOTE | 2017-08-12 08:26 | NUR ---
NOTIFIED BY FRANSICO BURSH OF RHYTHM CHANGE ON TELE. WILIAN DE LEON NOTIFIED. STAT EKG ORDERED. RT NOTIFIED AND ON THEIR WAY.
--- NOTE | 2017-08-12 10:50 | NUR ---
male pt received to ICU bed 4 via wc accompanied by Tim Dangelo RN in stable condition; ambulatory to bed x2 assist; pt offers no complaints; denies chest pain/ palpitations; pt alert and oriented; no n/v/ diaphoresis noted; resp slightly labored; sob noted with minimal exertion; lungs clear/ crackles right base; skin color wnl; o2 per nc at 2L; no cough noted; hr reg; doppler pedal pulses; generalized pitting edema noted/anasarca from upper torso to feet; sr 1st on monitor at this time; abd soft/distended with bs present; no bm noted per this time; pt admits to voiding without complication; no urine to inspect at this time; edema noted to penis and scotum; bsc provided as per pt request; #22 in lw saline locked; #20 in rac saline locked; no redness or edema noted at sites; plan of care explained; pt informed of pending transfer to [facility]; oriented to bed and call light system; call light within reach; will continue to monitor closely
--- NOTE | 2017-08-12 11:04 | NUR ---
PT TRANSFERED TO ICU BED [address] FULLER. REPORT GIVEN TO FRANSICO TOMAS.
--- NOTE | 2017-08-12 11:30 | NUR ---
assist to bsc; able to void 200cc yellow urine; mod soft lt brown bm noted per selling underwriter; assist to recliner per pt request; sr on monitor; iv intact; vss; call light within reach; will; continue to monitor
--- NOTE | 2017-08-12 12:03 | NUR ---
pt awake in recliner eating lunch; no distress noted; spouse present at bedside; resp even and unlabored; iv's intact; sr on monitor; o2 per nc; call light within reach; will continue to monitor
--- NOTE | 2017-08-12 12:28 | NUR ---
consent obtained to transfer to [facility]; signed per spouse as requested by pt
--- NOTE | 2017-08-12 14:05 | NUR ---
awake in recliner; feet elevated; no distress noted; resp even and unlabored; iv's intact; o2 per nc; spouse present at bedside; ice chips provided; call light within reach; will continue to monitor
--- NOTE | 2017-08-12 15:15 | NUR ---
call received from [facility]; bed assignment received [id number] [place]; report to be call at [phone];
--- NOTE | 2017-08-12 15:28 | NUR ---
[facility] called per sql report writer in regards to transfer; information provided; ETA for pick-up 1&1/2 hrs; will continue to monitor
--- NOTE | 2017-08-12 15:45 | NUR ---
#20 removed from rac, #22 removed from lw; #20 started in rw x1 attempted; flushed and patent; spouse departing at this time; pt belongings sent home with spouse per pt; cell phone remains with pt
--- NOTE | 2017-08-12 17:23 | NUR ---
pt discharged in stable condition with [facility]/ transferring to [facility]; bilat hearing aids and cell phone noted with pt;
--- NOTE | 2017-08-12 17:25 | NUR ---
call placed to spouse, Yanet Sawyer as per request; no answer; message left in regards to pt being transferred
--- NOTE | 2017-08-12 17:50 | NUR ---
report called to Ailyn Nicole, [address]; direct number provided for any additional information needed
== END 2017-08-12 17:25 | disposition short-term general hospital (02) | DRG 194 ==
LOC: ED 13:56 → ED-I 14:51 → ED 17:42 → MS2 17:43 → ICU 08-12 10:50
PROVIDERS: Family Medicine; Nurse Practitioner Family; ADMIT Internal Medicine; ATTEND Internal Medicine
DX: J18.9 Pneumonia, unspecified organism (principal); C79.51 Secondary malignant neoplasm of bone; E11.22 Type 2 diabetes mellitus with diabetic chronic kidney disease; N18.3 Chronic kidney disease, stage 3 (moderate); I44.1 Atrioventricular block, second degree; C61 Malignant neoplasm of prostate; D63.8 Anemia in other chronic diseases classified elsewhere; I08.0 Rheumatic disorders of both mitral and aortic valves; I12.9 Hypertensive chronic kidney disease with stage 1 through stage 4 chronic kidney disease, or unspecified chronic kidney disease; I25.10 Atherosclerotic heart disease of native coronary artery without angina pectoris; R19.7 Diarrhea, unspecified; R60.1 Generalized edema; I25.2 Old myocardial infarction; Z86.718 Personal history of other venous thrombosis and embolism; Z95.828 Presence of other vascular implants and grafts; Z79.899 Other long term (current) drug therapy; Z95.1 Presence of aortocoronary bypass graft
CPT/HCPCS: Q9967